=== PATIENT | male | born 1990 | race African-American/Black ===

== ENCOUNTER 2018-02-08 11:10 | Emergency (ER) | payer SELFPAY ==
[~2018-02-08] VITALS: Ht 175.3 cm; Wt 102.0 kg
[2018-02-08 11:27] VITALS: BP 130/85
[2018-02-08] MEDS ORDERED: IBUPROFEN 800 MG TABLET PO SCH (12:00)
== END 2018-02-08 12:08 | disposition home or self-care (01) ==
LOC: ED 11:58
DX: K08.89 Other specified disorders of teeth and supporting structures (principal)
CPT/HCPCS: 99283

== ENCOUNTER 2018-02-27 03:57 | Emergency (ER) | payer SELFPAY ==
[~2018-02-27] VITALS: Ht 175.3 cm; Wt 101.2 kg
[2018-02-27 03:58] VITALS: BP 116/79
[2018-02-27] MEDS ORDERED: HYDROcodone/APAP 5/325 TABLET PO STA (04:27)
[2018-02-27] MEDS ORDERED: AMOXICILLIN/CLAV 875-125MG TABLET PO STA (04:27)
[2018-02-27] MEDS ORDERED: HYDROcodone/APAP 5/325 TABLET ONE (04:31)
[2018-02-27] MEDS ORDERED: AMOXICILLIN/CLAV 875-125MG TABLET ONE (04:31)
== END 2018-02-27 04:57 | disposition home or self-care (01) ==
LOC: ED 04:18
DX: K08.89 Other specified disorders of teeth and supporting structures (principal)
CPT/HCPCS: 99283